=== PATIENT | female | born 1965 | race Caucasian/White ===

== ENCOUNTER → 2020-12-26 | Outpatient (CLI) | payer SELFPAY ==
[~2020-12-26] MED LIST: ALBUTEROL0.09 MG/A2 IH; ASPIRIN81 M1 PO; ATENOLOL25 MG PO; ATENOLOL50 M1 PO; ATORVASTATIN CA10 M1 PO; CLARITIN10 MG PO; LIPITOR10 MG PO; OXYCODONE HCL5 MG PO; PREDNISONE20 MG PO; PROAIR HFA8.5 GM INH; SULINDAC200 M1 PO; TESSALON PERLE100 M1 PO; TRAMADOL HCL50 MG PO; ZITHROMAX Z PA250 MG PO
== END | disposition home or self-care (01) ==
LOC: LAB 14:51
PROVIDERS: ATTEND Nurse Practitioner
DX: B34.9 Viral infection, unspecified (principal)

== ENCOUNTER 2023-10-18 05:04 | Emergency (ER) | payer BC ==
[~2023-10-18] VITALS: Ht 165.1 cm; Wt 126.1 kg
[2023-10-18] MEDS ORDERED: ATENOLOL-CHLOR1 EACH PO (05:22)
[2023-10-18] MEDS ORDERED: XARELTO15 M1 PO (05:23)
[2023-10-18 05:59] LABS: BASO # 0.1 10*3/uL (0.0-0.1); BASO % 0.5 % (0.0-1.0); EOS # 0.3 10*3/uL (0.0-0.4); EOS % 2.9 % (1.0-4.0); HEMATOCRIT 38.8 % (37.0-47.0); LYMPH # 2.5 10*3/uL (1.3-4.4); MEAN CELL VOLUME 90.4 fl (81.0-99.0); MEAN CORPUSCULAR HGB 30.5 pg (27.0-31.0); MEAN CORPUSCULAR HGB CONC 33.8 g/dl (33.0-37.0); MEAN PLATELET VOLUME 9.6 fl (9.6-12.3); MONO # 0.7 10*3/uL (0.1-1.0); MONO % 7.2 % (3.0-9.0); NEUT # 6.4 10*3/uL (2.3-7.9); NEUT % 64.1 % (47.0-73.0); PLATELET COUNT AUTOMATED 266 10*3/uL (130-400); RED BLOOD COUNT 4.29 10*6/uL (4.10-5.10)
[2023-10-18 06:09] LABS: ALKALINE PHOSPHATASE 97 U/L (46-116); BUN 14 mg/dl (9-23); CHLORIDE 99 mmol/L (98-107); POTASSIUM 2.6 mmol/L (3.4-5.1); SGPT/ALT 13 U/L (5-49); TOTAL PROTEIN 7.1 gm/dL (6.0-8.0)
== END 2023-10-18 06:59 | disposition home or self-care (01) ==
LOC: ED 05:04
PROVIDERS: Internal Medicine
DX: R00.0 Tachycardia, unspecified (principal); E87.6 Hypokalemia; I10 Essential (primary) hypertension; Z88.2 Allergy status to sulfonamides